=== PATIENT | male | born 1995 | race Caucasian/White ===

== ENCOUNTER 2017-05-11 12:06 | Emergency (ER) | payer OTHER ==
[2017-05-11 12:12] VITALS: TEMP 98.1; BMI 44.1
--- NOTE | 2017-05-11 12:23 | PDOC ---
*Physical Exam - Vital Signs Last Vital Signs Temp Pulse Resp BP Pulse Ox 98.1 F 67 18 134/66 99 05/11/17 12:08 05/11/17 12:08 05/11/17 12:08 05/11/17 12:08 05/11/17 12:08 - Physical Exam Comments: 05/11/17 12:23 Pt seen by the Advanced Practice Provider under my direct supervision Pt interviewed and examined Ancillary studies reviewed I agree with plan as outlined by the Advanced Practice Provider ED Treatment Course - LABORATORY CBC & Chemistry Diagram: 05/11/17 12:50 05/11/17 12:50 *DC/Admit/Observation/Transfer Diagnosis at time of Disposition: Dizziness - Discharge Dispostion Disposition: HOME Condition at time of disposition: Improved - Referrals Referrals: Donovan Loving MD [Staff Physician] - - Patient Instructions Printed Discharge Instructions: Dizziness, Nonvertigo Additional Instructions: Please follow up with Dr Loving in 1-2 weeks Return to ED for worsening of symptoms
[2017-05-11] MEDS ORDERED: SODIUM CHLORIDE 1,000 ML IV STA (12:49)
--- NOTE | 2017-05-11 12:50 | PDOC ---
History of Present Illness - General Chief Complaint: Blood Sugar Problem Stated Complaint: LIGHTHEADED Time Seen by Provider: 05/11/17 12:20 History Source: Patient - History of Present Illness Timing/Duration: 1 week Associated Symptoms: reports: nausea/vomiting. denies: chest pain, fever/chills , headaches, shortness of breath, weakness Past History - Past Medical History Allergies/Adverse Reactions: Allergies Allergy/AdvReac Type Severity Reaction Status Date / Time No Known Drug Allergies Allergy Verified 05/11/17 12:12 Diabetes: Yes (Type 2) Other medical history: obesity - Surgical History Abdominal Surgery: Yes (lap band?) - Psycho/Social/Smoking Cessation Hx Suicidal Ideation: No Smoking History: Never smoked Have you smoked in the past 12 months: No Information on smoking cessation initiated: No Hx Alcohol Use: No Drug/Substance Use Hx: No Substance Use Type: None Hx Substance Use Treatment: No Review of Systems - Review of Systems Constitutional: Yes: Chills. No: Fever Respiratory: No: Cough, Shortness of Breath Cardiac (ROS): Yes: Lightheadedness. No: Chest Pain, Palpitations ABD/GI: Yes: Nausea. No: Diarrhea, Vomiting : No: Dysuria, Hematuria Endocrine: No: Increased Thirst, Increased Urine *Physical Exam - Vital Signs Last Vital Signs Temp Pulse Resp BP Pulse Ox 98.1 F 67 18 134/66 99 05/11/17 12:08 05/11/17 12:08 05/11/17 12:08 05/11/17 12:08 05/11/17 12:08 - Physical Exam Comments: 05/11/17 13:04 well devendra morbidly obesed male, sitting up on stretcher General Appearance: Yes: Appropriately Dressed. No: Apparent Distress HEENT: positive: Normal Voice Neck: positive: Supple Respiratory/Chest: positive: Lungs Clear, Normal Breath Sounds. negative: Respiratory Distress Cardiovascular: positive: Regular Rate, S1, S2 Gastrointestinal/Abdominal: positive: Soft. negative: Tender Musculoskeletal: negative: CVA Tenderness Extremity: positive: Normal Inspection Integumentary: positive: Dry, Warm Neurologic: positive: Fully Oriented, Alert, Normal Mood/Affect Heart Score/ECG Review - ECG Intrepretation Comment:: 05/11/17 15:05 Twelve-lead EKG was performed and reviewed by me. There is normal sinus rhythm with a normal rate. The axis is normal. The intervals are normal. There are no ST or T wave abnormalities. Impression: Normal twelve-lead EKG ED Treatment Course - LABORATORY CBC & Chemistry Diagram: 05/11/17 12:50 05/11/17 12:50 Medical Decision Making - Medical Decision Making 05/11/17 13:00 21 yo M, morbidly obesed, DM, was taken off meds 2 years ago for well controlled BS and low HA1c as per pt, does not currently check sugars at home, here w/ intermittent dizziness and nausea x 1 week. Denies polyuria/dipsia/ phagia. No MARKHAM, visual changes, focal weakness, CP. SOB, abd pain, change in BM, dysuria, f/c. See exam R/o hyperglycemia in diabetic pt, not currently on meds Stable and well devendra w/ unremarkable exam -labs -IVF -dispo pending 05/11/17 13:04 05/11/17 15:02 Work up negative in ED. Pt reports feeling better w/ IVF and well devendra. Stable to be discharged. Given PMD referral 05/11/17 15:04 *DC/Admit/Observation/Transfer Diagnosis at time of Disposition: Dizziness - Discharge Dispostion Disposition: HOME Condition at time of disposition: Improved - Referrals Referrals: Donovan Loving MD [Staff Physician] - - Patient Instructions Printed Discharge Instructions: Dizziness, Nonvertigo Additional Instructions: Please follow up with Dr Loving in 1-2 weeks Return to ED for worsening of symptoms
[2017-05-11 13:00] LABS: BASOPHIL 0.9 % (0-2.0); EOSINOPHIL 1.9 % (0-4.5); MCH 28.2 pg (25.7-33.7); MCHC 33.2 g/dl (32.0-35.9); MEAN CELL VOLUME 85.1 fl (80-96); MEAN PLT VOLUME 7.4 fl (7.5-11.1); NEUTROPHILS 63.9 % (42.8-82.8); PLATELET COUNT 277 K/MM3 (134-434); RDW 13.6 % (11.9-15.9); WHITE BLOOD COUNT 7.3 K/mm3 (4.0-10.0)
[2017-05-11 13:17] LABS: ALBUMIN 3.8 g/dl (3.4-5.0); ALK PHOS 89 U/L (45-117); ANION GAP 6 (8-16); BILIRUBIN,TOTAL 0.3 mg/dL (0.2-1.0); CO2 30 mmol/L (21-32); CREATININE 0.6 mg/dL (0.7-1.3); GLUCOSE,RANDOM 97 mg/dL (74-106); SGOT/AST 28 U/L (15-37); SGPT/ALT 34 U/L (12-78); TOT PROT 8.1 g/dl (6.4-8.2)
[2017-05-11 15:02] LABS: URINE APPEARANCE CLEAR; URINE BILIRUBIN NEGATIVE (NEGATIVE); URINE BLOOD NEGATIVE (NEGATIVE); URINE COLOR STRAW; URINE GLUCOSE (UA) NEGATIVE (NEGATIVE); URINE KETONE NEGATIVE (NEGATIVE); URINE LEUK ESTERASE NEGATIVE (NEGATIVE); URINE NITRITE NEGATIVE (NEGATIVE); URINE PROTEIN NEGATIVE (NEGATIVE); URINE UROBILINOGEN NEGATIVE E.U./dl (0.2-1.0)
[2017-05-11 15:17] VITALS: BP 137/87; PULSE 76
--- NOTE | 2017-05-12 17:25 | EKG ---
Test Reason : Blood Pressure : / mmHG Vent. Rate : 067 BPM Atrial Rate : 067 BPM P-R Int : 178 ms QRS Dur : 108 ms QT Int : 382 ms P-R-T Axes : 016 017 021 degrees QTc Int : 403 ms NORMAL SINUS RHYTHM NORMAL ECG NO PREVIOUS ECGS AVAILABLE Confirmed by MD JUANITO, LEYDA ([id number]) on 05/12/2017 5:25:04 PM Referred By: Confirmed By:LEYDA SOLOMON MD
== END 2017-05-11 15:17 | disposition home or self-care (01) ==
LOC: JER 12:06
PROC: 3E0337Z Introduction of Electrolytic and Water Balance Substance into Peripheral Vein, Percutaneous Approach (ICD-10-PCS; principal; 2017-05-11)
DX: R42 Dizziness and giddiness (principal); E66.01 Morbid (severe) obesity due to excess calories; Z68.41 Body mass index [BMI] 40.0-44.9, adult
CPT/HCPCS: 36415; 80053; 81003; 82009; 83690; 85025; 93005; 93010; 99283-25

== ENCOUNTER 2018-03-22 20:50 | Emergency (ER) | payer OTHER ==
--- NOTE | 2018-03-22 21:06 | PDOC ---
Rapid Medical Evaluation Time Seen by Provider: 03/22/18 21:03 Medical Evaluation: Allergies Allergy/AdvReac Type Severity Reaction Status Date / Time No Known Drug Allergies Allergy Verified 05/11/17 12:12 03/22/18 21:03 I have performed a brief in-person evaluation of this patient. The patient presents with a chief complaint of: right sided headache Pertinent physical exam findings: CN II-XII intact I have ordered the following: Tylenol The patient will proceed to the ED for further evaluation. Discharge Disposition - Diagnosis Headache - Referrals Referrals: David Locke MD [Primary Care Provider] - - Patient Instructions - Post Discharge Activity
[2018-03-22 21:07] VITALS: BP 119/80; PULSE 79; TEMP 98.5; BMI 45.6
--- NOTE | 2018-03-22 21:46 | PDOC ---
History of Present Illness - General Chief Complaint: Headache Stated Complaint: HEADACHE Time Seen by Provider: 03/22/18 21:03 History Source: Patient Exam Limitations: No Limitations Past History - Travel Traveled outside of the country in the last 30 days: No Close contact w/someone who was outside of country & ill: No - Past Medical History Allergies/Adverse Reactions: Allergies Allergy/AdvReac Type Severity Reaction Status Date / Time No Known Drug Allergies Allergy Verified 03/22/18 21:03 Home Medications: Ambulatory Orders NK [No Known Home Medication] 03/22/18 Diabetes: Yes (Type 2) - Surgical History Abdominal Surgery: Yes (lap band?) - Suicide/Smoking/Psychosocial Hx Smoking History: Never smoked Have you smoked in the past 12 months: No Hx Alcohol Use: No Drug/Substance Use Hx: No Substance Use Type: None Hx Substance Use Treatment: No Review of Systems - Review of Systems Able to Perform ROS?: Yes Comments:: 03/22/18 22:42 CONSTITUTIONAL: Absent: fever, chills, diaphoresis, generalized weakness, malaise, loss of appetite HEENT: Absent: rhinorrhea, nasal congestion, throat pain, throat swelling, difficulty swallowing, mouth swelling, ear pain, eye pain, visual Changes CARDIOVASCULAR: Absent: chest pain, loss of consciousness, palpitations, irregular heart rate, peripheral edema RESPIRATORY: Absent: cough, shortness of breath, dyspnea with exertion, orthopnea, wheezing, stridor, hemoptysis GASTROINTESTINAL: Absent: abdominal pain, abdominal distension, nausea, vomiting, diarrhea, constipation, melena, hematochezia GENITOURINARY: Absent: dysuria, frequency, urgency, hesitancy, hematuria, flank pain, genital pain MUSCULOSKELETAL: Absent: myalgia, arthralgia, joint swelling SKIN: Absent: rash, itching, pallor HEMATOLOGIC/IMMUNOLOGIC: Absent: easy bleeding, easy bruising, lymphadenopathy, frequent infections ENDOCRINE: Absent: unexplained weight gain, unexplained weight loss, heat intolerance, cold intolerance NEUROLOGIC: Absent: headache, focal weakness or paresthesias, dizziness, unsteady gait, seizure, mental status changes, bladder or bowel incontinence PSYCHIATRIC: Absent: anxiety, depression, suicidal or homicidal ideation, hallucinations. Is the patient limited [employer] proficient: No *Physical Exam - Vital Signs Last Vital Signs Temp Pulse Resp BP Pulse Ox 98.5 F 79 20 119/80 03/22/18 21:03 03/22/18 21:03 03/22/18 21:03 03/22/18 21:03 - Physical Exam Comments: 03/22/18 22:42 GENERAL: Well developed, well nourished. Awake and alert. No acute distress. HEENT: Normocephalic, atraumatic. PERRLA, EOMI. No conjunctival pallor. Sclera are non- icteric. Moist mucous membranes. Oropharynx is clear. NECK: Supple. Full ROM. No JVD. Carotid pulses 2+ and symmetric, without bruits. No thyromegaly. No lymphadenopathy. CARDIOVASCULAR: Regular rate and rhythm. No murmurs, rubs, or gallops. Distal pulses are 2+ and symmetric. PULMONARY: No evidence of respiratory distress. Lungs clear to auscultation bilaterally. No wheezing, rales or rhonchi. ABDOMINAL: Soft. Non-tender. Non-distended. No rebound or guarding. No organomegaly. Normoactive bowel sounds. MUSCULOSKELETAL Normal range of motion at all joints. No bony deformities or tenderness. No CVA tenderness. EXTREMITIES: No cyanosis. No clubbing. No edema. No calf tenderness. SKIN: Warm and dry. Normal capillary refill. No rashes. No jaundice. NEUROLOGICAL: Alert, awake, appropriate. Cranial nerves 2-12 intact. No deficits to light touch and temperature in face, upper extremities and lower extremities. No motor deficits in the in face, upper extremities and lower extremities. Normoreflexic in the upper and lower extremities. Normal speech. Toes are down- going bilaterally. Gait is normal without ataxia. PSYCHIATRIC: Cooperative. Good eye contact. Appropriate mood and affect. *DC/Admit/Observation/Transfer Diagnosis at time of Disposition: Headache Qualifiers: Headache type: unspecified Headache chronicity pattern: acute headache Intractability: not intractable Qualified Code(s): R51 - Headache - Discharge Dispostion Disposition: HOME Condition at time of disposition: Stable Decision to Admit order: No - Referrals Referrals: David Locke MD [Primary Care Provider] - - Patient Instructions Printed Discharge Instructions: DI for Headache Additional Instructions: You have a headache. Please take Motrin 800 mg every 8 hours as needed for pain. Do not exceed taking 3000 mg a day. Please drink plenty fluids Get plenty of rest Follow up with your primary care doctor in 1 week. Return to the emergency department if you have worsening headache, numbness and tingling to the extremities, lightheadedness, dizziness, or any changes in her symptoms. - Post Discharge Activity Forms/Work/School Notes: Back to Work
[2018-03-22] MEDS ORDERED: SODIUM CHLORIDE 1,000 ML IV STA (22:06)
[2018-03-22] MEDS ORDERED: METOCLOPRAMIDE HCL INJECTION 10 MG/2 ML VIAL IVPB ONE (22:06)
[2018-03-22] MEDS ORDERED: METOCLOPRAMIDE HCL INJECTION 10 MG/2 ML VIAL ONE (22:23)
== END 2018-03-22 23:00 | disposition home or self-care (01) ==
LOC: JERFT 20:50
PROC: 3E033GC Introduction of Other Therapeutic Substance into Peripheral Vein, Percutaneous Approach (ICD-10-PCS; principal; 2018-03-22)
PROC: 3E0337Z Introduction of Electrolytic and Water Balance Substance into Peripheral Vein, Percutaneous Approach (ICD-10-PCS; 2018-03-22)
DX: R51 Headache (principal); E11.9 Type 2 diabetes mellitus without complications; Z98.84 Bariatric surgery status
CPT/HCPCS: 99281-25; J7030

== ENCOUNTER 2018-03-23 08:02 | Emergency (ER) | payer OTHER ==
[2018-03-23 08:12] VITALS: BP 125/69; PULSE 80; TEMP 99.1; BMI 45.6
[2018-03-23] MEDS ORDERED: predniSONE 20 MG TABLET (UD) PO ONE (08:59)
[2018-03-23] MEDS ORDERED: RANITIDINE HCL 150 MG TABLET (FP) PO ONE (08:59)
[2018-03-23] MEDS ORDERED: predniSONE 20 MG TABLET (UD) ONE (09:03)
[2018-03-23] MEDS ORDERED: RANITIDINE HCL 150 MG TABLET (FP) ONE (09:04)
--- NOTE | 2018-03-23 09:14 | PDOC ---
History of Present Illness - General Chief Complaint: Eye Problem Stated Complaint: EYE PROBLEM Time Seen by Provider: 03/23/18 08:51 History Source: Patient - History of Present Illness Timing/Duration: other (this am) Associated Symptoms: reports: headaches, nausea/vomiting. denies: fever/chills Past History - Past Medical History Allergies/Adverse Reactions: Allergies Allergy/AdvReac Type Severity Reaction Status Date / Time No Known Drug Allergies Allergy Verified 03/23/18 08:21 Home Medications: Ambulatory Orders Famotidine [Pepcid] 20 mg PO DAILY #7 tablet 03/23/18 Loratadine [Claritin] 10 mg PO DAILY #14 tablet 03/23/18 Prednisone [Deltasone] 20 mg PO DAILY #8 tablet 03/23/18 COPD: No Diabetes: Yes (Type 2) - Surgical History Abdominal Surgery: Yes (lap band?) - Immunization History Immunization Up to Date: Yes - Suicide/Smoking/Psychosocial Hx Smoking History: Never smoked Have you smoked in the past 12 months: No Information on smoking cessation initiated: No Hx Alcohol Use: No Drug/Substance Use Hx: No Substance Use Type: None Hx Substance Use Treatment: No Review of Systems - Review of Systems Constitutional: No: Fever HEENTM: No: Eye Pain, Tearing Respiratory: No: Shortness of Breath, Stridor Neurological: Yes: Headache. No: Dizziness *Physical Exam - Vital Signs Last Vital Signs Temp Pulse Resp BP Pulse Ox 99.1 F 80 16 125/69 99 03/23/18 08:07 03/23/18 08:07 03/23/18 08:07 03/23/18 08:07 03/23/18 08:07 - Physical Exam General Appearance: Yes: Appropriately Dressed. No: Apparent Distress HEENT: positive: Other (significant R periorboital edema w/ eyes swollen shut, +tearing, no conjunctival erythema, discharge, vision intact) Integumentary: positive: Dry, Warm Neurologic: positive: Fully Oriented, Alert, Normal Mood/Affect ED Treatment Course - Medications Given in the ED: ED Medications Discontinued Medications Generic Name Dose Route Start Last Admin Trade Name Freq PRN Reason Stop Dose Admin Prednisone 60 mg 03/23/18 08:59 03/23/18 09:05 Deltasone - PO 03/23/18 09:00 60 mg ONCE ONE Administration Ranitidine HCl 150 mg 03/23/18 08:59 03/23/18 09:05 Zantac - PO 03/23/18 09:00 150 mg ONCE ONE Administration Medical Decision Making - Medical Decision Making 03/23/18 09:06 22 yo male, morbidly obesed, DM, no longer on medication as HbA1c normal per pt (of note has has DKA in the past), right periorbital swelling that patient awoke with this a.m. Denies itching, tearing discharge, visual changes, foreign body sensation. Rash, tongue or lip swelling or shortness of breath. Patient was seen in ED yesterday for headache and treated with IV fluids, reglan and benadryl with improvement in headache. States he has no known drug allergies, but does report that it was his first time taking Reglan and Benadryl. States R frontal MARKHAM re-occurred today See exam Most likely allergic rx to R eye Took IV reglan/benadryl for first time yesterday in ED after p/w MARKHAM No angioedema/resp sxs No e/o infxn -prednisone -h2 bhargavi -will hold off on benadryl for now given hx -will discuss case further w/ ED attg in the main MARKHAM resolved w/ meds in ER yesterday No red flags at this time Possible migrainous in nature -motrin in ED 03/23/18 09:16 03/23/18 09:59 Case d/w Dr. Montague in main ED, who states that patient's allergic reaction is unlikely secondary to Benadryl he was given yesterday in ER. Recommends dose of Benadryl at this time 03/23/18 12:17 Reports feeling better with less swelling now on exam. Discharged with appropriate medications with strict return precautions. Will discuss possible reglan allergy with PMD *DC/Admit/Observation/Transfer Diagnosis at time of Disposition: Allergic reaction Qualifiers: Encounter type: initial encounter Qualified Code(s): T78.40XA - Allergy, unspecified, initial encounter - Discharge Dispostion Disposition: HOME Condition at time of disposition: Improved - Prescriptions Prescriptions: Famotidine [Pepcid] 20 mg PO DAILY #7 tablet Loratadine [Claritin] 10 mg PO DAILY #14 tablet Prednisone [Deltasone] 20 mg PO DAILY #8 tablet - Referrals Referrals: David Locke MD [Primary Care Provider] - - Patient Instructions Printed Discharge Instructions: DI for General Allergic Reactions Additional Instructions: You most likely have a an allergic reaction. The source is unclear at this time , but possibly reglan. Please discuss with your PMD. Take medications as directed and return for worsening of symptoms - Post Discharge Activity Forms/Work/School Notes: Back to Work
[2018-03-23] MEDS ORDERED: IBUPROFEN 400 MG TABLET (FP) PO ONE ×2 (09:16→09:27)
[2018-03-23] MEDS ORDERED: diphenhydrAMINE HCL 25 MG CAPSULE (FP) PO ONE ×2 (09:58→10:04)
== END 2018-03-23 12:02 | disposition home or self-care (01) ==
LOC: JERFT 08:02
DX: T78.40XA Allergy, unspecified, initial encounter (principal); E11.9 Type 2 diabetes mellitus without complications; E66.01 Morbid (severe) obesity due to excess calories; Z68.42 Body mass index [BMI] 45.0-49.9, adult
CPT/HCPCS: 82962; 99281-25

== ENCOUNTER 2018-06-07 07:13 | Day surgery (SDC) | payer OTHER ==
[2018-06-06 14:56] VITALS: BMI 48.6
[2018-06-07] MEDS ORDERED: PROPOFOL 20 ML ONE ×3 (07:56)
[2018-06-07] MEDS ORDERED: LIDOCAINE HCL/PF 2% SDV 5ML VIAL ONE (07:56)
[2018-06-07 08:22] VITALS: TEMP 98
--- NOTE | 2018-06-07 08:51 | OP ---
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 PROCEDURE: Upper endoscopy/esophagogastroduodenoscopy. SPECIMEN: None. ESTIMATED BLOOD LOSS: None. ANESTHESIA: MAC. REASON FOR PROCEDURE: This is a 22-year-old male who had a vertical sleeve gastrectomy at [facility] in 2014. Since then, he has regained weight. In order to assess for gastric pouch dilation, an upper endoscopy was performed. Risks and benefits of the procedure were explained. These included bleeding, infection, trauma to the oral cavity, esophagus, gastric pouch, stomach, intestine, perforation abscess, dysphagia, stricture, IA, DVT, PE, as some of the complications. He understood and signed informed consent. DESCRIPTION OF PROCEDURE: Patient was placed in the left lateral decubitus position. He underwent MAC by Anesthesia. The endoscope was inserted into the base of his mouth. The entirety of the esophagus, GE junction, gastric pouch were inspected up to the level of the pylorus. Mild dilation of the gastric pouch noted. The stomach was suctioned, and the endoscope removed. Patient tolerated the procedure well and was transferred to the recovery room in stable condition. JULIO BLANTON M.D. [id number]
[2018-06-07 09:34] VITALS: BP 109/66; PULSE 58
== END 2018-06-07 09:30 | disposition home or self-care (01) ==
LOC: JASU-ENDO 07:13
PROVIDERS: ATTEND Surgery
PROC: 0DJ08ZZ Inspection of Upper Intestinal Tract, Via Natural or Artificial Opening Endoscopic (ICD-10-PCS; principal; 2018-06-07 08:30)
DX: R63.5 Abnormal weight gain (principal); Z98.84 Bariatric surgery status